=== PATIENT | male | born 1970 | race Two or more races ===

== ENCOUNTER 2018-10-05 17:28 | Emergency (ER) | payer SELFPAY ==
[~2018-10-05] VITALS: Ht 175.3 cm; Wt 110.2 kg
--- NOTE | 2018-10-05 18:01 | NUR ---
PT IS IN ROOM #2B. DR BECERRA EVALUATED THE PT.
[2018-10-05] MEDS ORDERED: HYDROCODONE/APAP 5-325MG TABLET ONE (18:14)
[2018-10-05] MEDS ORDERED: HYDROCODONE/APAP 5-325MG TABLET PO ONE (18:15)
[2018-10-05 18:19] LABS: BASOPHILS # (AUTO) 0.1 K/uL (0.0-8.0); BASOPHILS % (AUTO) 0.7 % (0.0-2.0); EOSINOPHILS # (AUTO) 0.3 K/uL (0.0-0.7); EOSINOPHILS % (AUTO) 2.2 % (0.0-7.0); HEMATOCRIT 47.2 % (36.7-47.1); HEMOGLOBIN 15.6 g/dL (12.5-16.3); LYMPHOCYTES # (AUTO) 2.2 K/uL (20.0-40.0); LYMPHOCYTES % (AUTO) 14.9 % (20.5-51.5); MEAN CORPUSCULAR HEMOGLOBIN 31.1 uug (23.8-33.4); MEAN CORPUSCULAR HGB CONC 33 g/dL (32.5-36.3); MEAN CORPUSCULAR VOLUME 93.9 fL (73.0-96.2); MONOCYTES % (AUTO) 6.6 % (0.0-11.0); NEUTROPHILS % (AUTO) 75.6 % (38.5-71.5); PLATELET COUNT (AUTO) 198 K/uL (152-348); RED BLOOD CELL COUNT(AUTO) 5.03 MIL/uL (4.06-5.63); WHITE BLOOD COUNT (AUTO) 14.6 K/uL (3.6-10.2)
[2018-10-05 18:30] LABS: CREATININE 0.7 mg/dL (0.6-1.3)
[2018-10-05 18:35] LABS: BILIRUBIN,DIRECT 0.1 mg/dL (0.0-0.2); BILIRUBIN,TOTAL 0.5 mg/dL (0.2-1.0); TOTAL PROTEIN, SERUM 8.8 g/dL (6.4-8.2)
--- NOTE | 2018-10-05 19:10 | NUR ---
REPORT GIVEN TO OPTHALMIC TECH RN.
[2018-10-05 19:51] VITALS: BP 132/71
--- NOTE | 2018-10-05 19:51 | NUR ---
Patient discharged to home in stable conditon. Written and verbal after care instructions given. Patient verbalizes understanding of instructions.
== END 2018-10-05 20:19 | disposition home or self-care (01) ==
LOC: ER 17:30
DX: S00.03XA Contusion of scalp, initial encounter (principal); M54.2 Cervicalgia; M54.9 Dorsalgia, unspecified; E11.9 Type 2 diabetes mellitus without complications; W10.9XXA Fall (on) (from) unspecified stairs and steps, initial encounter; Y93.89 Activity, other specified; Y92.89 Other specified places as the place of occurrence of the external cause; Y99.0 Civilian activity done for income or pay
CPT/HCPCS: 36415; 70030-TC; 70450; 72125; 85025; 85730; 93005; A4663